=== PATIENT | male | born 1955 | race African-American/Black ===

== ENCOUNTER 2018-03-10 10:38 | Inpatient (IN) | payer OTHER ==
[~2018-03-10] VITALS: Ht 180.3 cm; Wt 119.0 kg
[2018-04-07 18:53] VITALS: BP 113/86; PULSE 89
[2018-04-08] VITALS (10 sets, daily range): BP systolic 108–144; BP diastolic 64–86; PULSE 80–88; TEMP 97.8–98.2
[2018-04-08] MEDS ORDERED: HCTZ 25MG TAB25 MG PO (10:33)
[2018-04-08] MEDS ORDERED: ADALAT CC30 MG PO (10:33)
[2018-04-08] MEDS ORDERED: MASON NATURAL2000 IU PO (10:34)
[2018-04-08] MEDS ORDERED: LIPITOR20 MG PO (10:35)
[2018-04-08] MEDS ORDERED: ZYRTEC 10MG10 MG PO (10:35)
[2018-04-08] MEDS ORDERED: FLONASE NASAL S16 GM NS (10:35)
[2018-04-08] MEDS ORDERED: FLEXERIL 1010 MG/TAB PO (10:36)
[2018-04-08] MEDS ORDERED: ULTRAM 50MG TAB50 MG PO (10:37)
[2018-04-08] MEDS ORDERED: CELEBREX 200MG200 MG PO (10:38)
[2018-04-08] MEDS ORDERED: MOTRIN 800800 MG/TAB PO (10:38)
[2018-04-08] MEDS ORDERED: NATURAL IRON65 MG PO (10:39)
[2018-04-09 01:32] VITALS: BP 132/77; PULSE 89; TEMP 97.8
[2018-04-09 05:16] VITALS: BP 142/76; PULSE 89; TEMP 97.9
[2018-04-09 07:30] LABS: BASO % 0.1 % (0.0-2.0); EOS % 0.2 % (0-4.0); GRAN # 9.8 (1.4-6.5); GRAN % 85.7 % (42.2-75.2); HEMATOCRIT 37.6 % (42.0-52.0); HEMOGLOBIN 13.2 g/dl (13.5-18.0); LYMPH # 0.8 (1.2-3.4); LYMPH % 6.7 % (20.0-51.0); MEAN CELL VOLUME 90 fl (80.0-100.0); MEAN CORPUSCULAR HEMOGLOBIN 31 pg (27.0-31.0); MEAN CORPUSCULAR HGB CONC 35 g/dl (33.0-37.0); MONO # 0.8 (0.1-0.6); MONO % 6.7 % (1.7-9.3); PLATELET COUNT 300 K/mm3 (130-400); REDCELL DISTRIBUTION WIDTH-CV 12.7 % (11.5-14.5)
[2018-04-09 08:02] VITALS: BP 135/74; PULSE 93; TEMP 97.9
[2018-04-09 12:13] VITALS: BP 137/60; PULSE 88; TEMP 97.3
[2018-04-09 15:26] VITALS: BP 128/77; PULSE 92; TEMP 97.3
[2018-04-09 23:05] VITALS: BP 125/71; PULSE 81; TEMP 97.5
[2018-04-10 04:30] VITALS: BP 135/89; PULSE 95; TEMP 97.5
[2018-04-10 07:03] LABS: HEMATOCRIT 43.4 % (42.0-52.0); HEMOGLOBIN 14.8 g/dl (13.5-18.0); MEAN CELL VOLUME 91 fl (80.0-100.0); MEAN CORPUSCULAR HEMOGLOBIN 31 pg (27.0-31.0); MEAN CORPUSCULAR HGB CONC 34 g/dl (33.0-37.0); MEAN PLATELET VOLUME 9.6 fl (7.4-10.4); PLATELET COUNT 365 K/mm3 (130-400); RED BLOOD COUNT 4.78 M/mm3 (4.20-5.60); REDCELL DISTRIBUTION WIDTH-CV 12.7 % (11.5-14.5)
[2018-04-10 07:20] LABS: CALCIUM 9.5 mg/dL (8.4-10.2); CREATININE, serum 0.86 mg/dL (0.66-1.25); POTASSIUM 3.6 mmol/L (3.4-5.0)
[2018-04-10 08:15] VITALS: BP 133/68; PULSE 98; TEMP 98
[2018-04-10 12:13] VITALS: BP 131/84; PULSE 98; TEMP 98
[2018-04-10 15:20] VITALS: BP 142/92; PULSE 113; TEMP 98.8
[2018-04-10 19:29] VITALS: BP 115/76; PULSE 107; TEMP 97.8
[2018-04-10 23:25] VITALS: BP 149/84; PULSE 97; TEMP 98.2
[2018-04-11 04:02] VITALS: BP 131/69; PULSE 100; TEMP 97.9
[2018-04-11 07:30] VITALS: BP 118/81; PULSE 96; TEMP 97.3
[2018-04-11 08:23] VITALS: BP 118/75; PULSE 94; TEMP 98.5
[2018-04-11 12:22] VITALS: BP 138/73; PULSE 94; TEMP 97.9
[2018-04-11 15:31] VITALS: BP 124/77; PULSE 92; TEMP 98.4
[2018-04-11 19:46] VITALS: BP 126/74; PULSE 90; TEMP 98.2
[2018-04-12] VITALS (10 sets, daily range): BP systolic 121–180; BP diastolic 71–95; PULSE 76–110; TEMP 98.2–98.3
[2018-04-12 08:23] LABS: BASO % 0.3 % (0.0-2.0); EOS # 0.1 (0.0-0.7); EOS % 0.6 % (0-4.0); GRAN # 9.2 (1.4-6.5); HEMATOCRIT 46.4 % (42.0-52.0); HEMOGLOBIN 16.1 g/dl (13.5-18.0); LYMPH # 1.1 (1.2-3.4); LYMPH % 9.3 % (20.0-51.0); MEAN CELL VOLUME 90 fl (80.0-100.0); MEAN CORPUSCULAR HEMOGLOBIN 31 pg (27.0-31.0); MEAN CORPUSCULAR HGB CONC 35 g/dl (33.0-37.0); MEAN PLATELET VOLUME 9.5 fl (7.4-10.4); MONO # 0.8 (0.1-0.6); MONO % 7.4 % (1.7-9.3); PLATELET COUNT 405 K/mm3 (130-400); RED BLOOD COUNT 5.15 M/mm3 (4.20-5.60); REDCELL DISTRIBUTION WIDTH-CV 12.2 % (11.5-14.5)
[2018-04-12 08:38] LABS: ALBUMIN 4.5 gm/dL (3.5-5.0); BILIRUBIN,TOTAL 1.8 mg/dL (0.0-1.0); CREATININE, serum 1.02 mg/dL (0.66-1.25); POTASSIUM 3.6 mmol/L (3.4-5.0); TOTAL PROTEIN 9.3 gm/dL (6.4-8.2)
[2018-04-13 05:18] VITALS: BP 134/82; PULSE 103; TEMP 98.5
[2018-04-13 07:29] VITALS: BP 137/80; PULSE 100; TEMP 98.8
[2018-04-13 08:33] LABS: CALCIUM 8.7 mg/dL (8.4-10.2); CREATININE, serum 1.06 mg/dL (0.66-1.25); POTASSIUM 3.9 mmol/L (3.4-5.0)
[2018-04-13 11:56] VITALS: BP 150/71; PULSE 100; TEMP 98
[2018-04-13 15:55] VITALS: BP 139/70; PULSE 106; TEMP 98.5
[2018-04-13 20:00] VITALS: BP 122/69; PULSE 98; TEMP 98.9
[2018-04-14 03:10] VITALS: BP 137/69; PULSE 87; TEMP 97.4
[2018-04-14 07:50] VITALS: BP 138/68; PULSE 95; TEMP 97.5
[2018-04-14 11:00] VITALS: BP 120/68; PULSE 96; TEMP 97.7
[2018-04-14 16:00] VITALS: BP 133/75; PULSE 95; TEMP 98.3
[2018-04-14 19:29] VITALS: BP 143/80; PULSE 90; TEMP 98.2
[2018-04-15 00:11] VITALS: BP 128/80; PULSE 81; TEMP 98
[2018-04-15 04:00] VITALS: BP 135/79; PULSE 80; TEMP 98.6
[2018-04-15 07:49] VITALS: BP 137/94; PULSE 93; TEMP 99.2
== END 2018-04-15 13:50 | disposition home or self-care (01) | DRG 614 ==
LOC: SURG 04-08 09:48 → INPTSU 04-08 09:48 → SURG 04-08 12:15
PROVIDERS: Urology
PROC: 8E0WXCZ Robotic Assisted Procedure of Trunk Region (ICD-10-PCS; 2018-04-08)
PROC: 0GB34ZZ Excision of Right Adrenal Gland, Percutaneous Endoscopic Approach (ICD-10-PCS; principal; 2018-04-08 12:15)
PROC: 0WQF0ZZ Repair Abdominal Wall, Open Approach (ICD-10-PCS; 2018-04-12)
DX: D35.01 Benign neoplasm of right adrenal gland (principal); K43.0 Incisional hernia with obstruction, without gangrene; I10 Essential (primary) hypertension
CPT/HCPCS: A4314; A9284; C9113; J0330; J0690; J1100; J1170; J1650; J1885; J2270; J2405; J2704; J3010; J7120; Q9967

== ENCOUNTER 2021-07-07 15:52 | Emergency (ER) | payer MEDICARE, OTHER ==
[~2021-07-07] VITALS: Ht 180.3 cm; Wt 104.5 kg
[~2021-07-07 15:52] MED LIST: ADALAT CC30 MG PO; CELEBREX 200MG200 MG PO; FLEXERIL 1010 MG/TAB PO; FLONASE NASAL S16 GM NS; HCTZ 25MG TAB25 MG PO; LIPITOR20 MG PO; MASON NATURAL2000 IU PO; MOTRIN 800800 MG/TAB PO; NATURAL IRON65 MG PO; ULTRAM 50MG TAB50 MG PO; ZYRTEC 10MG10 MG PO
[2021-07-07 16:03] VITALS: TEMP 98.4
[2021-07-07 17:48] LABS: BASO % 0.2 % (0.0-2.0); EOS % 0.4 % (0.0-4.0); GRAN # 4.5 K/mm3 (1.4-6.5); GRAN % 83.9 % (42.2-75.2); HEMOGLOBIN 11.8 g/dl (13.5-18.0); LYMPH # 0.7 K/mm3 (1.2-3.4); LYMPH % 12.7 % (20.0-51.0); MEAN CELL VOLUME 93 fl (80.0-100.0); MEAN CORPUSCULAR HEMOGLOBIN 33 pg (27-31); MEAN CORPUSCULAR HGB CONC 35 g/dl (33.0-37.0); MEAN PLATELET VOLUME 11.9 fl (7.4-10.4); MONO # 0.1 K/mm3 (0.1-0.6); MONO % 2.1 % (1.7-9.3); PLATELET COUNT 206 K/mm3 (130-400); RED BLOOD COUNT 3.61 M/mm3 (4.20-5.60); REDCELL DISTRIBUTION WIDTH-CV 13.3 % (11.5-14.5)
[2021-07-07 17:53] LABS: HEMATOCRIT 33.6 % (42.0-52.0)
[2021-07-07 18:08] LABS: ALBUMIN 3.7 gm/dL (3.4-4.8); BILIRUBIN,TOTAL 1.5 mg/dL (0.2-1.2); CALCIUM 8.5 mg/dL (8.4-10.2); CREATININE, serum 1.12 mg/dL (0.72-1.25); POTASSIUM 3.6 mmol/L (3.5-4.5); TOTAL PROTEIN 7.5 gm/dL (6.2-8.1)
[2021-07-07 19:16] LABS: COLLECTION METHOD CLEAN CATCH
[2021-07-07 19:24] LABS: MUCOUS Present (NOT PRESENT); PH 5 (5-8); SQUAMOUS EPITHELIAL 0-2 /hpf (0-10); URINE APPEARANCE Hazy (CLEAR/HAZY); URINE BACTERIA Rare /hpf (NONE SEEN); URINE BILIRUBIN Negative (NEGATIVE); URINE BLOOD Negative (NEGATIVE); URINE COLOR Yellow (YELLOW); URINE GLUCOSE 1+ (NEGATIVE); URINE KETONE Negative (NEGATIVE); URINE LEUKOCYTE ESTERASE Negative (NEGATIVE); URINE NITRATE Negative (NEGATIVE); URINE PROTEIN(semi-quant) 1+ (NEGATIVE); URINE UROBILINOGEN >=4.0 (NEGATIVE)
[2021-07-07] MEDS ORDERED: REGLAN 10MG10 MG/TAB PO (22:06)
[2021-07-07] MEDS ORDERED: CEPHALEXIN500 M1 PO (22:06)
[2021-07-07] MEDS ORDERED: PERCOCET 325 MG1 TA3 PO (22:06)
[2021-07-07 22:14] VITALS: BP 120/84; PULSE 86
== END 2021-07-07 22:14 | disposition home or self-care (01) ==
LOC: COL.ER 15:52
PROVIDERS: Emergency Medicine
DX: N39.0 Urinary tract infection, site not specified (principal)
CPT/HCPCS: J0696; J2270; J2405; J2765; J7030; Q9967

== ENCOUNTER 2021-08-22 12:29 | Emergency (ER) | payer MEDICARE, OTHER ==
[~2021-08-22] VITALS: Ht 180.3 cm; Wt 90.9 kg
[~2021-08-22 12:29] MED LIST changes: +CEPHALEXIN500 M1 PO; +PERCOCET 325 MG1 TA3 PO; +REGLAN 10MG10 MG/TAB PO
[2021-08-22 12:55] LABS: HEMOGLOBIN 11.4 g/dl (13.5-18.0); MEAN CELL VOLUME 91 fl (80.0-100.0); MEAN CORPUSCULAR HEMOGLOBIN 31 pg (27-31); MEAN CORPUSCULAR HGB CONC 34 g/dl (33.0-37.0); MEAN PLATELET VOLUME 11.9 fl (7.4-10.4); PLATELET COUNT 196 K/mm3 (130-400); RED BLOOD COUNT 3.64 M/mm3 (4.20-5.60); REDCELL DISTRIBUTION WIDTH-CV 13.9 % (11.5-14.5)
[2021-08-22 13:03] LABS: HEMATOCRIT 33.2 % (42.0-52.0)
[2021-08-22 13:14] LABS: BAND 10 % (0-10); EOSINOPHIL 1 % (0-4); LYMPHOCYTE 12 % (20.0-51.0); MYELOCYTE 1 % (0-0); NEUTROPHILS 73 % (42.0-75.2); PLATELET ESTIMATE NORMAL (NORMAL)
[2021-08-22 13:19] LABS: TROPONIN-I 0.018 ng/mL (0.00-0.033)
[2021-08-22 13:24] LABS: ALBUMIN 3.6 gm/dL (3.4-4.8); CALCIUM 8.6 mg/dL (8.4-10.2); CREATININE, serum 0.89 mg/dL (0.72-1.25); POTASSIUM 3.3 mmol/L (3.5-4.5); TOTAL PROTEIN 8.3 gm/dL (6.2-8.1)
[2021-08-22 13:38] LABS: BILIRUBIN,TOTAL 1.1 mg/dL (0.2-1.2)
[2021-08-22 14:56] LABS: COLLECTION METHOD CLEAN CATCH
[2021-08-22 15:09] LABS: MUCOUS Present (NOT PRESENT); PH 5 (5-8); SQUAMOUS EPITHELIAL None Seen /hpf (0-10); URINE APPEARANCE Hazy (CLEAR/HAZY); URINE BACTERIA None Seen /hpf (NONE SEEN); URINE BILIRUBIN Positive (NEGATIVE); URINE BLOOD Negative (NEGATIVE); URINE COLOR Amber (YELLOW); URINE GLUCOSE Negative (NEGATIVE); URINE KETONE 1+ (NEGATIVE); URINE LEUKOCYTE ESTERASE Negative (NEGATIVE); URINE NITRATE Negative (NEGATIVE); URINE PROTEIN(semi-quant) 1+ (NEGATIVE); URINE RBC 0-2 /hpf (0-2); URINE UROBILINOGEN >=4.0 (NEGATIVE)
[2021-08-22 15:29] VITALS: BP 118/94; PULSE 99; TEMP 98.2
== END 2021-08-22 15:33 | disposition home or self-care (01) ==
LOC: COL.ER 12:29
PROVIDERS: Nurse Practitioner Primary Care
DX: R53.81 Other malaise (principal); R11.0 Nausea; C90.00 Multiple myeloma not having achieved remission; Z79.899 Other long term (current) drug therapy
CPT/HCPCS: J2405; J7030

== ENCOUNTER 2021-08-24 11:22 | Day surgery (SDC) | payer MEDICARE, OTHER ==
[~2021-08-24] VITALS: Ht 180.3 cm; Wt 91.6 kg
[2021-08-24 12:05] VITALS: BP 130/91; PULSE 97; TEMP 97
[2021-08-24] MEDS ORDERED: LIPITOR20 MG PO (12:09)
[2021-08-24] MEDS ORDERED: ELIQUIS 2.5 PO (12:09)
[2021-08-24] MEDS ORDERED: ZYRTEC 10MG10 MG PO (12:10)
[2021-08-24] MEDS ORDERED: CYMBALTA 30MG30 MG PO (12:11)
[2021-08-24] MEDS ORDERED: IRON TABLETS325 MG PO (12:12)
[2021-08-24] MEDS ORDERED: ALLEGRA 180MG180 MG PO (12:13)
[2021-08-24] MEDS ORDERED: FLONASEALLERGY NS (12:13)
[2021-08-24] MEDS ORDERED: LIDO2%GEL TOP (12:14)
[2021-08-24] MEDS ORDERED: MAALOX ADVANCED1 CTB PO (12:16)
[2021-08-24] MEDS ORDERED: MELATIN 3 MG-11 TAB PO (12:17)
[2021-08-24] MEDS ORDERED: PROTONIX 40MG T40 MG PO (12:17)
[2021-08-24] MEDS ORDERED: PHENERGAN 25 TA25 MG PO (12:18)
[2021-08-24] MEDS ORDERED: K-DUR20 MEQ PO (12:18)
[2021-08-24] MEDS ORDERED: CARAFATE 1GM1 G PO (12:19)
[2021-08-24 13:20] VITALS: BP 140/97; PULSE 93; TEMP 97.2
[2021-08-24 13:35] VITALS: BP 136/100; PULSE 88
[2021-08-24 13:45] VITALS: BP 140/97; PULSE 93; TEMP 97.2
[2021-08-24 13:50] VITALS: BP 137/98; PULSE 92
--- NOTE | 2021-08-24 14:03 | NUR ---
1320: Patient arrived back into bay 5 from endo procedure room. Patient is alert and awake, report recieved from ANAHY Teixeira. Dr. Yen in to see patient. Patient requesting coke and applesauce. 1335: Patient tolerating food and drink. at bedside. Patient states he would like to get going soon. IV removed. Patient told he was okay to start getting dressed. 1350: Patient vital signs stable. Tolerated food and drink. Went through discharge instructions with patient and . Patient to follow up with Dr. Chavarrias PA, office to call and set up appointment. Patient then escorted to patient entrance via wheelchair by ANAHY Weller. Patient got into personal vehicle and left in the care of his , Diane.
== END 2021-08-24 14:00 | disposition home or self-care (01) ==
LOC: SDCO 11:22
DX: K44.9 Diaphragmatic hernia without obstruction or gangrene (principal); Z87.891 Personal history of nicotine dependence
CPT/HCPCS: J2704; J7030

== ENCOUNTER → 2021-09-07 | Outpatient (CLI) | payer MEDICARE, OTHER ==
[~2021-09-07] MED LIST changes: +ALLEGRA 180MG180 MG PO; +CARAFATE 1GM1 G PO; +CYMBALTA 30MG30 MG PO; +ELIQUIS 2.5 PO; +FLONASEALLERGY NS; +IRON TABLETS325 MG PO; +K-DUR20 MEQ PO; +LIDO2%GEL TOP; +MAALOX ADVANCED1 CTB PO; +MELATIN 3 MG-11 TAB PO; +NEURONTIN300 MG/CAP PO; +NORCO 325 MG-51 TAB PO; +PHENERGAN 25 TA25 MG PO; +PROTONIX 40MG T40 MG PO
== END ==
LOC: COL.VAS 12:47
DX: C90.00 Multiple myeloma not having achieved remission (principal)

== ENCOUNTER 2021-09-20 11:49 | Day surgery (SDC) | payer MEDICARE, OTHER ==
[~2021-09-20] VITALS: Ht 180.3 cm; Wt 87.7 kg
[~2021-09-20 11:49] MED LIST changes: -NEURONTIN300 MG/CAP PO; -NORCO 325 MG-51 TAB PO
[2021-09-20 13:33] VITALS: BP 111/73; PULSE 107; TEMP 97.2
[2021-09-20] MEDS ORDERED: NEURONTIN300 MG/CAP PO (13:53)
[2021-09-20] MEDS ORDERED: NORCO 325 MG-51 TAB PO (14:43)
[2021-09-20 14:45] VITALS: BP 98/69; PULSE 94
--- NOTE | 2021-09-20 14:45 | NUR ---
Patient returns to room 8 per cart from surgery accompanied by Olena HIGGINBOTHAM and Billy QUINTANILLA. Dressing clean and dry on the left port a catheter site. Temp 97.2 and room air sats 99%. IV fluids infusing and site is free of redness or swelling. Siderails up x2 and call light in reach. Spouse in room. Allowed to rest.
[2021-09-20 15:00] VITALS: BP 111/70; PULSE 92
--- NOTE | 2021-09-20 15:00 | NUR ---
Dr. Villegas in the room talking with spouse and patient. All questions answered. Patient awake and taking Pepsi.
[2021-09-20 15:15] VITALS: BP 125/75; PULSE 95
--- NOTE | 2021-09-20 15:15 | NUR ---
Tolerates Pepsi. Denies pain or nausea.
--- NOTE | 2021-09-20 15:27 | NUR ---
IV discontinued and site is free of redness or swelling. Patient dresses self with assist from spouse.
--- NOTE | 2021-09-20 15:30 | NUR ---
Dismissal instructions given and voices understanding of home cares and follow up as needed.
--- NOTE | 2021-09-20 15:33 | NUR ---
Patient dismissed to home driven by spouse and taken to the front door per wheelchair and assisted into vehilce with instructions in hand.
== END 2021-09-20 15:33 | disposition home or self-care (01) ==
LOC: SDCO 11:49
DX: C90.00 Multiple myeloma not having achieved remission (principal); G62.89 Other specified polyneuropathies; G47.33 Obstructive sleep apnea (adult) (pediatric); Z99.89 Dependence on other enabling machines and devices
CPT/HCPCS: C1788; J0690; J1644; J2704; J3010; J7120

== ENCOUNTER → 2021-11-22 | Outpatient (CLI) | payer MEDICARE, OTHER ==
[~2021-11-22] MED LIST changes: +NEURONTIN300 MG/CAP PO; +NORCO 325 MG-51 TAB PO
== END ==
LOC: COL.RAD 09:58
DX: Z01.812 Encounter for preprocedural laboratory examination (principal); Z01.810 Encounter for preprocedural cardiovascular examination; K59.09 Other constipation; R63.4 Abnormal weight loss; R11.2 Nausea with vomiting, unspecified
CPT/HCPCS: Q9967

== ENCOUNTER → 2021-11-24 | Emergency (ER) | payer MEDICARE, OTHER ==
[~2021-11-24] VITALS: Ht 180.3 cm; Wt 81.8 kg
[2021-11-24 17:58] VITALS: BP 120/61; PULSE 100; TEMP 98.1
[2021-11-24 19:22] LABS: BASO % 0.2 % (0.0-2.0); EOS # 0.2 K/mm3 (0.0-0.7); EOS % 4.5 % (0.0-4.0); GRAN # 2.7 K/mm3 (1.4-6.5); GRAN % 65.2 % (42.2-75.2); HEMOGLOBIN 11.4 g/dl (13.5-18.0); LYMPH # 0.7 K/mm3 (1.2-3.4); LYMPH % 15.5 % (20.0-51.0); MEAN CELL VOLUME 92 fl (80.0-100.0); MEAN CORPUSCULAR HEMOGLOBIN 31 pg (27-31); MEAN CORPUSCULAR HGB CONC 34 g/dl (33.0-37.0); MEAN PLATELET VOLUME 10.3 fl (7.4-10.4); MONO # 0.6 K/mm3 (0.1-0.6); MONO % 14.1 % (1.7-9.3); PLATELET COUNT 330 K/mm3 (130-400); RED BLOOD COUNT 3.66 M/mm3 (4.20-5.60); REDCELL DISTRIBUTION WIDTH-CV 13.4 % (11.5-14.5)
[2021-11-24 19:27] LABS: ALBUMIN 3.7 gm/dL (3.4-4.8); BILIRUBIN,TOTAL 1.9 mg/dL (0.2-1.2); CALCIUM 9.1 mg/dL (8.4-10.2); CREATININE, serum 0.76 mg/dL (0.72-1.25); HEMATOCRIT 33.7 % (42.0-52.0); POTASSIUM 4.3 mmol/L (3.5-4.5); TOTAL PROTEIN 6.6 gm/dL (6.2-8.1)
== END ==
LOC: COL.ER 17:31
PROVIDERS: Physician Assistant
DX: R10.84 Generalized abdominal pain (principal); C90.00 Multiple myeloma not having achieved remission; Z87.19 Personal history of other diseases of the digestive system
CPT/HCPCS: J1170; J2405

== ENCOUNTER 2021-12-08 06:17 | Day surgery (SDC) | payer MEDICARE, OTHER ==
[2021-12-08] VITALS (7 sets, daily range): BP systolic 121–1124; BP diastolic 79–93; PULSE 78–91; TEMP 98.5
[~2021-12-08] VITALS: Ht 180.3 cm; Wt 84.8 kg
[2021-12-08 07:25] LABS: HEMOGLOBIN 11.9 g/dl (13.5-18.0); MEAN CELL VOLUME 92 fl (80.0-100.0); MEAN CORPUSCULAR HEMOGLOBIN 32 pg (27-31); MEAN CORPUSCULAR HGB CONC 35 g/dl (33.0-37.0); MEAN PLATELET VOLUME 10.7 fl (7.4-10.4); PLATELET COUNT 210 K/mm3 (130-400); RED BLOOD COUNT 3.76 M/mm3 (4.20-5.60); REDCELL DISTRIBUTION WIDTH-CV 12.8 % (11.5-14.5)
[2021-12-08 07:26] LABS: HEMATOCRIT 34.4 % (42.0-52.0)
--- NOTE | 2021-12-08 08:20 | NUR ---
DR. OTTO HERE AND TALKS WITH THE PATIENT. ORDERS RECIEVED FOR CMP AND KUB.
--- NOTE | 2021-12-08 08:27 | NUR ---
KUB DONE AT BEDSIDE.
[2021-12-08 08:47] LABS: ALBUMIN 3.7 gm/dL (3.4-4.8); BILIRUBIN,TOTAL 1.3 mg/dL (0.2-1.2); CALCIUM 9.1 mg/dL (8.4-10.2); CREATININE, serum 0.72 mg/dL (0.72-1.25); POTASSIUM 4.4 mmol/L (3.5-4.5); TOTAL PROTEIN 6.8 gm/dL (6.2-8.1)
--- NOTE | 2021-12-08 09:00 | NUR ---
DR. OTTO IN THE ROOM AND TALKS WITH THE PATIENT. WILL PROCEED WITH SURGERY AND ADD EXPLORATORY LAPAROSCOPY WITH POSSIBLE LYSIS OF ADHESIONS TO EXISTING CONSENT. PATIENT AGREES TO THIS AND VOICES UNDERSTANDING. CONSENT INITIALED BY RN AND PATIENT. SPOUSE IN ROOM AND ALSO VOICES UNDERSTANDING.
[2021-12-08] MEDS ORDERED: ZOFRAN 4MG T4 MG/TAB PO (11:06)
[2021-12-08] MEDS ORDERED: NORCO 325 MG-51 TAB PO (11:06)
--- NOTE | 2021-12-08 12:35 | NUR ---
PATIENT RETURNS TO ROOM 7 PER CART AND AROUSES TO VERBAL STIMULI. IV FLUIDS INFUSING. OFFERS NO COMPLAINTS OF PAIN AT PRESENT TIME. SPOUSE IN ROOM. TEMP 97.6 AND ROOM AIR SATS 99%. BANDAID X1 ON ABDOMEN AND EXOFIN DRESSING COVERING 2 SCOPE SITES DRY. SIDERAILS UP X2. DRINKING WATER AND EATING MUFFIN.
--- NOTE | 2021-12-08 12:50 | NUR ---
ROOM AIR SATS 100%. WARM BLANKET APPLIED ON ABDOMEN. STATES THAT IS HAVING ABDOMINAL SPASMS.
--- NOTE | 2021-12-08 13:05 | NUR ---
WAS MEDICATED WITH NORCO 5MG ONE TAB FOR ABDOMINAL PAIN. ENCOURAGED TO DEEP BREATH.
--- NOTE | 2021-12-08 13:20 | NUR ---
MORE AWAKE AND WATCHES TV. TAKING WATER. SPOUSE REMAINS IN ROOM.
--- NOTE | 2021-12-08 13:35 | NUR ---
RESTS WITH EYES CLOSED AND OFFERS NO FUTHER COMPLAINTS. ALLOWED TO REST.
--- NOTE | 2021-12-08 14:05 | NUR ---
RESTING AND OFFERS NO COMPLAINTS OF DISCOMFORT. TOLERATED WATER AND MUFFIN.
--- NOTE | 2021-12-08 15:03 | NUR ---
IV TO INT. ASSISTED TO EDGE OF CART WITH MUCH ENCOURAGEMENT. ABLE TO VOID PER URINAL. TOLERATES ACTIVITY WELL.
--- NOTE | 2021-12-08 15:35 | NUR ---
DISMISSAL INSTRUCTIONS GIVEN AND PATIENT VOICES UNDERSTANDING OF HOME CARES AND FOLLOW UP.
--- NOTE | 2021-12-08 15:41 | NUR ---
PATIENT DISMISSED TO HOME DRIVEN BY SPOUSE AND TAKEN TO THE FRONT DOOR PER WHEELCHAIR AND ASSISTED INTO PRIVATE VEHICLE WITH INSTRUCTIONS IN HAND.
== END 2021-12-08 12:07 | disposition home or self-care (01) ==
LOC: SDCO 06:17
PROVIDERS: Nurse Anesthetist, Certified Registered; Surgery
DX: K42.9 Umbilical hernia without obstruction or gangrene (principal); Z87.891 Personal history of nicotine dependence
CPT/HCPCS: C1781; J0330; J0690; J1100; J1170; J1885; J2370; J2405; J2704; J3010; J3360; J7120